=== PATIENT | female | born 1975 | race Caucasian/White ===

== ENCOUNTER 2016-06-07 19:56 | Emergency (ER) | payer OTHER ==
[2016-06-07 20:07] VITALS: TEMP 97.5; O2SAT 100
[2016-06-07 20:22] VITALS: BMI 20.1
[2016-06-07] MEDS ORDERED: Alum-Mag Hydrox-Simethicone Susp (30 mL) PO STA (20:30)
[2016-06-07] MEDS ORDERED: Lidocaine 2% Viscous 100 ml PO STA (20:30)
[2016-06-07] MEDS ORDERED: Atrop/Hyosc/Scopal/PB Elixir (120 ml) PO STA (20:30)
--- NOTE | 2016-06-07 20:52 | ED PDOC ---
Arrival/HPI <Phong iHlario - Last Filed: 06/07/16 23:24> - General Historian: Patient <Renetta Reid PA-C - Last Filed: 06/08/16 01:54> - General Chief Complaint: ENT Problem Time Seen by Provider: 06/07/16 20:10 - History of Present Illness Narrative History of Present Illness (Text): 06/07/16 20:49 Patient states that after eating rice for dinner oz started having a sensation that her "burp is stuck" in the lower sternal chest, patient states that she immediately tried to drink water but felt that it was not going down appropriately, then her started performing the Heimlich maneuver and she vomited out the water that she drank earlier. Patient states that she does not feel like food is stuck in her throat, neck, esophagus, or chest. Otherwise : (-) further episodes of vomiting, (-) chest pain, (-) shortness of breath, (- ) dyspnea, (-) abdominal pain, (-) back pain, (-) diarrhea, (-) fever. Patient reports having similar episodes in the past, states that sometimes they resolve on their own, and once she came to the emergency room to be evaluated, during that visit she was given medicine and felt better and was sent home. PMD Matthew (Renetta Reid PA-C) Past Medical History - Provider Review Nursing Documentation Reviewed: Yes - Infectious Disease Hx of Infectious Diseases: None - Tetanus Immunization Tetanus Immunization: Up to Date - Cardiac Hx Cardiac Disorders: No - Pulmonary Hx Asthma: Yes - Neurological Hx Neurological Disorder: No - HEENT Hx HEENT Disorder: No - Renal Hx Renal Disorder: No - Endocrine/Metabolic Hx Hypothyroidism: Yes - Hematological/Oncological Hx Blood Disorders: No - Integumentary Hx Dermatological Disorder: No - Musculoskeletal/Rheumatological Hx Musculoskeletal Disorders: No - Gastrointestinal Hx Gastrointestinal Disorders: No - Genitourinary/Gynecological Hx Genitourinary Disorders: No - Psychiatric Hx Psychophysiologic Disorder: No Hx Substance Use: No - Surgical History Hx Appendectomy: Yes - Anesthesia Hx Anesthesia: No Hx Anesthesia Reactions: No Hx Malignant Hyperthermia: No <Renetta Reid PA-C - Last Filed: 06/08/16 01:54> Family/Social History - Physician Review Nursing Documentation Reviewed: Yes Family/Social History: No Known Family HX Smoking Status: Never Smoked Hx Alcohol Use: No Hx Substance Use: No <Renetta Reid PA-C - Last Filed: 06/08/16 01:54> Allergies/Home Meds <Phong Hilario - Last Filed: 06/07/16 23:24> <Renetta Reid PA-C - Last Filed: 06/08/16 01:54> Allergies/Adverse Reactions: Allergies capsaicin [From Allevess Patch] Allergy (Verified 06/07/16 20:07) RASH menthol [From Allevess Patch] Allergy (Verified 06/07/16 20:07) RASH Home Medications: Home Meds Medication Instructions Recorded Confirmed Levothyroxine [Synthroid] 05/09/15 05/09/15 Review of Systems - Review of Systems Constitutional: Normal. absent: Fatigue, Weight Change Respiratory: Normal. absent: SOB, Cough Cardiovascular: Normal. absent: Chest Pain, Palpitations Gastrointestinal: Normal. absent: Abdominal Pain, Stool Changes Musculoskeletal: Normal. absent: Arthralgias, Back Pain Skin: Normal. absent: Rash, Skin Lesions <Renetta Reid PA-C - Last Filed: 06/08/16 01:54> Physical Exam <Phong Hilario - Last Filed: 06/07/16 23:24> <Renetta Reid PA-C - Last Filed: 06/08/16 01:54> - Physical Exam Narrative Physical Exam (Text): 06/07/16 20:53 GENERAL APPEARANCE: Patient is awake, alert, oriented x 3, in moderate distress. Patient speaking in full sentences, no drooling. SKIN: Warm, dry; (-) cyanosis. EYES: (-) conjunctival pallor, (-) scleral icterus. ENMT: Mucous membranes moist. NECK: (-) tenderness, (-) stiffness, (-) lymphadenopathy. CHEST AND RESPIRATORY: (-) rales, (-) rhonchi, (-) wheezes; breath sounds equal bilaterally. HEART AND CARDIOVASCULAR: (-) irregularity; (-) murmur, (-) gallop. ABDOMEN AND GI: (-) distention. Bowel sounds active; (-) tenderness, (-) guarding, (-) rebound, (-) palpable masses, (-) CVA tenderness. EXTREMITIES: (-) deformity, (-) edema, (+) distal pulses. NEURO AND PSYCH: Mental status as above; (-) focal findings. (Renetta Reid PA-C) Vital Signs Temp Pulse Resp BP Pulse Ox 06/07/16 23:10 85 18 112/81 100 06/07/16 20:01 97.5 F L 108 H 20 108/80 100 Medical Decision Making <Phong Hilario - Last Filed: 06/07/16 23:24> - Lab Interpretations I have reviewed the lab results: Yes Interpretation: All labs normal <Renetta Reid PA-C - Last Filed: 06/08/16 01:54> ED Course and Treatment: 06/07/16 20:57 41 yo F presents with sensation of "burp being stuck" to the lower sternum. CXR ordered. Patient medicated with GI cocktail PO, will reevaluate. 06/07/16 22:49 On re-evaluation, patient reports no improvement of her symptoms, she is dry heaving at this time, still states that she feels like her "burp is stuck," but denies any chest pain, SOB or FB sensation to the chest, esophagus or neck. EKG , CXR, labs ordered, given zofran IV, pepcid IV and offered glucagon, however the patient refused the glucagon. Labs reviewed, are otherwise normal. K 3.1, given KCL PO. CXR: NAD, as read by ROMAIN. EKG: NSR at 84 bpm, (-) acute ST changes, as read by PA. On reevaluation, patient feels much improved, denies any nausea, vomiting, chest pain, difficulty breathing. States that she no longer feels that her "burp " is stuck, states that she burped several times and felt so much better, denies any abdominal pain as well. On exam patient is calm, and in no acute painful or respiratory distress, speaking in full sentences, no drooling. VS: P 85 BP 112/81 100%RA Based on history, exam and diagnostic results plan will be for patient follow- up with PMD and GI referral provided. Prescription provided. Patient states she fully agrees with and understands discharge instructions. States that she agrees with the plan and disposition. Verbalized and repeated discharge instructions and plan. I have given the patient opportunity to ask any additional questions. Follow up with primary care physician and GI referral in 1-2 days without fail. Advised to take medication as prescribed. Return to the emergency room at any time for any new or worsening symptoms. (Franklin RICKS,Renetta Kumar) - Lab Interpretations Lab Results: 06/07/16 21:01 06/07/16 21:01 Lab Results 06/07/16 21:01: WBC 10.2, RBC 4.70, Hgb 12.1, Hct 36.6, MCV 77.9 L, MCH 25.7, MCHC 33.1, RDW 14.4, Plt Count 274, MPV 10.1, Gran % 51.8, Lymph % (Auto) 31.5, [place] % (Auto) 6.2 H, Eos % (Auto) 9.6 H, Baso % (Auto) 0.9, Gran # 5.27, Lymph # 3.2, [place] # 0.6, Eos # 1.0 H, Baso # 0.09, Sodium 140, Potassium 3.2 L, Chloride 104, Carbon Dioxide 22, Anion Gap 17, BUN 13, Creatinine 0.7, Est GFR ( Amer) > 60, Est GFR (Non-Af Amer) > 60, Random Glucose 105, Calcium 9.8 , Total Bilirubin 0.6, AST 25, ALT 22, Alkaline Phosphatase 58, Total Protein 7.7, Albumin 4.3, Globulin 3.4, Albumin/Globulin Ratio 1.3, Lipase 96 - RAD Interpretation Radiology Orders: 06/07/16 20:31 CHEST TWO VIEWS (PA/LAT) [RAD] Stat - Medication Orders Current Medication Orders: Discontinued Medications Al Hydrox/Mg Hydrox/Simethicone (Maalox Plus 30 Ml) 30 ml PO STAT STA Stop: 06/07/16 20:31 Last Admin: 06/07/16 21:16 Dose: 30 ML Belladonna/Phenobarbital ( Elixir) 5 ml PO STAT STA Stop: 06/07/16 20:31 Last Admin: 06/07/16 21:15 Dose: 5 ML Famotidine (Pepcid) 20 mg IVP STAT STA Stop: 06/07/16 21:06 Last Admin: 06/07/16 21:19 Dose: 20 MG IVP Administration Document 06/07/16 21:19 SB (Rec: 06/07/16 21:20 SB [id number]) Charges for Administration # of IVP Administrations 1 Glucagon (Glucagen Diagnostic Kit) 1 mg IV STAT STA Stop: 06/07/16 21:06 Last Admin: 06/07/16 21:16 Dose: Lidocaine (Lidocaine 2% Viscous) 15 ml PO STAT STA Stop: 06/07/16 20:31 Last Admin: 06/07/16 21:15 Dose: 15 ML Ondansetron HCl (Zofran Odt) 4 mg PO STAT STA Stop: 06/07/16 20:32 Last Admin: 06/07/16 20:38 Dose: Not Given Non-Admin Reason: Patient Refused Potassium Chloride (Potassium Chloride Oral Soln) 20 meq PO STAT STA Stop: 06/07/16 23:23 Last Admin: 06/07/16 23:31 Dose: 20 MEQ - PA / PUBLIC HEALTH NURSE / Resident Statement DUNCAN has reviewed & agrees with the documentation as recorded. <Phong Hilario - Last Filed: 06/07/16 23:24> - PA / PUBLIC HEALTH NURSE / Resident Statement DUNCAN has reviewed & agrees with the documentation as recorded. <Renetta Reid PA-C - Last Filed: 06/08/16 01:54> Disposition/Present on Arrival <Phong Hilario - Last Filed: 06/07/16 23:24> - Present on Arrival Any Indicators Present on Arrival: No History of DVT/PE: No History of Uncontrolled Diabetes: No Urinary Catheter: No History of Decub. Ulcer: No History Surgical Site Infection Following: None - Disposition Have Diagnosis and Disposition been Completed?: Yes Disposition Time: 23:13 Patient Plan: Discharge <Renetta Reid PA-C - Last Filed: 06/08/16 01:54> - Disposition Diagnosis: GERD (gastroesophageal reflux disease) Disposition: HOME/ ROUTINE Condition: GOOD Discharge Instructions (ExitCare): Gastroesophageal Reflux Disease (ED) Print Language: PORTUGUESE Additional Instructions: Thank you for letting us take care of you today. You were treated for GERD. The emergency medical care you received today was directed at your acute symptoms. If you were prescribed any medication, please fill it and take as directed. It may take several days for your symptoms to resolve. Return to the Emergency Department if your symptoms worsen, do not improve, or if you have any other problems. Please contact your doctor in 2 days for re-evaluation and follow up / or call one of the physicians/clinics you have been referred to that are listed on the Patient Visit Information form that is included in your discharge packet. Bring any paperwork you were given at discharge with you along with any medications you are taking to your follow up visit. Our treatment cannot replace ongoing medical care by a primary care provider (PCP) outside of the emergency department. Thank you for allowing the [facility] team to be part of your care today. Prescriptions: Famotidine [Pepcid] 40 mg PO DAILY #20 tablet Referrals: Stephanie Castro APN-C [Primary Care Provider] - Follow up with primary Sugar SOLITARIO,MD Rajendra [Medical Doctor] - Follow up with primary Forms: WORK NOTE
[2016-06-07] MEDS ORDERED: Glucagon Recombinant 1 mg Inj IV STA (21:05)
[2016-06-07 21:11] LABS: ADD MANUAL DIFF? NO
[2016-06-07 21:26] LABS: ALB/GLOB RATIO 1.3 (1.1-1.8); ALKALINE PHOSPHATASE 58 U/L (38-133); ALT/SGPT 22 U/L (7-56); AST/SGOT 25 U/L (15-39); BILIRUBIN,TOTAL 0.6 mg/dL (0.2-1.3); BLOOD UREA NITROGEN 13 mg/dL (7-21); CALCIUM 9.8 mg/dL (8.4-10.5); CARBON DIOXIDE 22 mmol/L (21-33); CHLORIDE 104 mmol/L (98-107); GFR AFRICAN-AMERICAN > 60; GLUCOSE,RANDOM 105 mg/dL (70-110); LIPASE 96 U/L (23-300); POTASSIUM 3.2 mmol/L (3.6-5.0); SODIUM 140 mmol/L (132-148); TOTAL PROTEIN 7.7 g/dL (5.8-8.3)
[2016-06-07 21:27] LABS: BASO # 0.09 K/mm3 (0.0-2.0); BASO % 0.9 % (0.0-3.0); EOS % 9.6 % (1.5-5.0); GRAN # 5.27 (1.4-6.5); GRAN % 51.8 % (50.0-68.0); HEMATOCRIT 36.6 % (36.0-48.0); LYMPH # 3.2 (1.2-3.4); LYMPH % 31.5 % (22.0-35.0); MEAN CELL VOLUME 77.9 fL (80.0-105.0); MEAN CORPUSCULAR HEMOGLOBIN 25.7 pg (25.0-35.0); MEAN CORPUSCULAR HGB CONC 33.1 g/dl (31.0-37.0); MEAN PLATELET VOLUME 10.1 fl (7.0-11.0); MONO # 0.6 (0.1-0.6); MONO % 6.2 % (1.0-6.0); PLATELET COUNT 274 10^3/uL (120.0-450.0); RED CELL DISTRIBUTION WIDTH 14.4 % (11.5-14.5); WHITE BLOOD COUNT 10.2 10^3/ul (4.5-11.0)
[2016-06-07] MEDS ORDERED: Potassium Chloride 20 mEq/15 ml LIQ UD PO STA (23:22)
[2016-06-07 23:32] VITALS: BP 112/81; PULSE 85; RESP 18
--- NOTE | 2016-06-08 07:17 | RAD ---
HISTORY: pain COMPARISON: Comparison chest 07/06/2015 TECHNIQUE: Chest PA and lateral FINDINGS: LUNGS: No active pulmonary disease. PLEURA: No significant pleural effusion identified. No pneumothorax apparent. CARDIOVASCULAR: Normal. OSSEOUS STRUCTURES: No significant abnormalities. VISUALIZED UPPER ABDOMEN: Normal. OTHER FINDINGS: None. IMPRESSION: No active disease.
--- NOTE | 2016-06-08 20:06 | CARD ---
APPROVED REPORT EKG Measurement Heart [id number] [id number] <Conclusion> Normal sinus rhythm Normal ECG
== END 2016-06-07 23:30 | disposition home or self-care (01) ==
LOC: ED 19:56
DX: K21.9 Gastro-esophageal reflux disease without esophagitis (principal); E03.9 Hypothyroidism, unspecified

== ENCOUNTER 2016-09-12 15:27 | Observation (INO) | payer OTHER ==
[2016-09-12 15:51] VITALS: BMI 21.2
[2016-09-12 15:58] VITALS: RESP 18; TEMP 98.3
--- NOTE | 2016-09-12 16:01 | ED PDOC ---
Arrival/HPI - History of Present Illness Time/Duration: Prior to Arrival Symptom Onset: Sudden Symptom Course: Unchanged Context: Home - General Chief Complaint: Chest Pain Time Seen by Provider: 09/12/16 15:30 - History of Present Illness Narrative History of Present Illness (Text): 09/12/16 15:56 41 yo female with PMH of hypothyroidism presents to emergency department with chest pain. She states that last night she started having pain under her left breast. She states she took mylanta, green tea and went to bed. She states that when she woke up she continued to have pain. She states the pain has been constantly. She state the pain is worse when she lays on her left side or when she takes deep breaths. She state that she has chest pain associated with gas and acid reflex in the past but it is usually resolves with burping and passing gas. She denies fever, chills, abd pain, n/v. PMD: (Beth Alvarez) Past Medical History - Provider Review Nursing Documentation Reviewed: Yes - Infectious Disease Hx of Infectious Diseases: None - Tetanus Immunization Tetanus Immunization: Up to Date - Cardiac Hx Cardiac Disorders: No - Pulmonary Hx Asthma: Yes - Neurological Hx Neurological Disorder: No - HEENT Hx HEENT Disorder: No - Renal Hx Renal Disorder: No - Endocrine/Metabolic Hx Hypothyroidism: Yes - Hematological/Oncological Hx Blood Disorders: No - Integumentary Hx Dermatological Disorder: No - Musculoskeletal/Rheumatological Hx Musculoskeletal Disorders: No - Gastrointestinal Hx Gastrointestinal Disorders: No - Genitourinary/Gynecological Hx Genitourinary Disorders: No - Psychiatric Hx Psychophysiologic Disorder: No Hx Substance Use: No - Surgical History Hx Appendectomy: Yes - Anesthesia Hx Anesthesia: No Hx Anesthesia Reactions: No Hx Malignant Hyperthermia: No Family/Social History - Physician Review Nursing Documentation Reviewed: Yes Family/Social History: No Known Family HX Smoking Status: Never Smoked Hx Alcohol Use: No Hx Substance Use: No Allergies/Home Meds Allergies/Adverse Reactions: Allergies capsaicin [From Allevess Patch] Allergy (Verified 06/07/16 20:07) RASH menthol [From Allevess Patch] Allergy (Verified 06/07/16 20:07) RASH Home Medications: Home Meds Medication Instructions Recorded Confirmed Levothyroxine [Synthroid] 05/09/15 05/09/15 Review of Systems - Review of Systems Constitutional: Normal. absent: Fevers Eyes: Normal ENT: Normal. absent: Sore Throat, Rhinorrhea, Sinus Congestion Respiratory: Normal. absent: Cough, Wheezing Cardiovascular: Chest Pain. absent: Palpitations, Edema, Calf Pain, Syncope Gastrointestinal: Normal. absent: Abdominal Pain, Constipation, Diarrhea, Nausea, Vomiting Genitourinary Female: Normal. absent: Dysuria, Frequency, Hematuria Musculoskeletal: Normal. absent: Arthralgias, Myalgias Skin: Normal. absent: Rash, Pruritis Neurological: Normal. absent: Headache, Dizziness Endocrine: Normal. absent: Diaphoresis Hemo/Lymphatic: Normal Psychiatric: Normal Physical Exam - Systems Exam Head: Present: Atraumatic, Normocephalic Pupils: Present: PERRL. No: Non-Reactive, Pinpoint Extroacular Muscles: Present: EOMI Conjunctiva: Present: Normal Mouth: Present: Moist Mucous Membranes Neck: Present: Normal Range of Motion Respiratory/Chest: Present: Clear to Auscultation, Good Air Exchange, Tender to Palpation. No: Respiratory Distress, Accessory Muscle Use, Wheezes, Rales, Rhonchi, Tachypneic Cardiovascular: Present: Regular Rate and Rhythm, Normal S1, S2. No: Murmurs, Bradycardic Abdomen: Present: Normal Bowel Sounds. No: Tenderness, Distention, Peritoneal Signs Back: Present: Normal Inspection Upper Extremity: Present: Normal Inspection. No: Cyanosis, Edema Lower Extremity: Present: Normal Inspection, NORMAL PULSES. No: Edema, CALF TENDERNESS, Tenderness, Swelling Neurological: Present: GCS=15, CN II-XII Intact, Speech Normal Skin: Present: Warm, Dry, Normal Color. No: Rashes, Diaphoretic, Pale Psychiatric: Present: Alert, Oriented x 3, Normal Insight, Normal Concentration Vital Signs Temp Pulse Resp BP Pulse Ox 09/12/16 20:25 94 H 18 110/68 98 09/12/16 18:34 94 H 18 110/42 L 98 09/12/16 15:27 98.3 F 92 H 18 127/85 100 Medical Decision Making - EKG Interpretation Interpreted by ED Physician: Yes Type: 12 lead EKG ED Course and Treatment: Patient seen and examined with resident. Came up with treatment and disposition plan with resident. pt's HEART score low. 2 sets of cardiac enzymes and an EKG ordered We long discussion with patient that our initial evaluation has not shown evidence of a heart attack. Patient verbalized understanding that even if these tests are normal, symptoms may still be a warning sign of a future heart attack and it is very important for patient to arrange outpatient cardiology follow up Patient was agreeable to observation in the emergency room, and understood that this will prolong the length of stay (Joe Oconnor) 09/12/16 16:04 Impression: 41 yo female with PMH of hypothyriodism, asthma presents to emergency department with chest pain. Differential Diagnosis included but are not limited to: - r/o acs Plan: - cbc, cmp - PT, PTT - cardiac iso - d-dimer - cxr - ED observes - protonix - Reassess and disposition Progress Notes: - EKG: Rate 91, rhythm: NSR, no ST changes 09/12/16 17:23 - Troponin was negative x1, will order repeat trop. D- dimer was elevated, will order CTA. Discussed results with patient, she is agreeable to have CTA. - CXR showed no active disease 09/12/16 18:59 - CTA FINDINGS: PULMONARY ARTERIES: Note that the examination is suboptimal with nearly equal contrast opacification of both the pulmonary arteries and aorta resultant salt and pepper type artifact. The visualized portions of the pulmonary trunk, right and left main and lobar branches and segmental branches are well opacified with no definitive evidence to suggest acute central pulmonary embolus. . The subsegmental branches are not well delineated. . Pulmonary trunk measures approximately 2.76 cm. AORTA: The ascending thoracic aorta measures approximately 2.6 cm and descending thoracic aorta measures approximately 2.0 cm. LUNGS: Lungs demonstrate no infiltrate effusion or basilar pneumothorax. No evidence of parenchymal mass. There appears to be some subpleural scarring in the right posterior sulcus abutting the pleural surface. PLEURAL SPACES: Unremarkable. No effusion or pneuomothorax. HEART: Unremarkable. No cardiomegaly. No significant pericardial effusion. LYMPH NODES: No lymphadenopathy. BONES, CHEST WALL: Unremarkable. No fracture or destructive lesion OTHER FINDINGS: There is a elliptical shaped approximately 3.3 x 2.0 cm low-attenuation masslike density in the region of the right adrenal gland which could represent adrenal adenoma however the possibility of an exophytic slightly hyperdense renal cyst not excluded. Recommend followup [place] ultrasound. IMPRESSION: No definitive radiographic evidence of acute central pulmonary embolus. There is a elliptical shaped approximately 3.3 x 2.0 cm low-attenuation masslike density in the region of the right adrenal gland which could represent adrenal adenoma however the possibility of an exophytic slightly hyperdense renal cyst not excluded. Recommend followup [place] ultrasound 09/12/16 19:31 - Results of CTA were discussed with patient and her . She was instructed to see PMD to follow up the right adrenal mass. All questions were answered. 09/12/16 20:17 - second trops are negative. Patient states pain has improved and would like to go home. Patient will follow up with PMD in 1-2 days. Discharge plan was discussed with patient, she is in agreement. All questions answered. (Beth Alvarez) - RAD Interpretation Radiology Orders: 09/12/16 15:52 CHEST PORTABLE [RAD] Stat - EKG Interpretation EKG Interpretation (Text): 09/12/16 16:09 EKG: Ordered, reviewed, and independently interpreted the EKG. Rate : 91 BPM Rhythm : NSR Interpretation : No ST-segment elevations or depressions Comparison : No change from previous EKG. (Beth Alvarez) - Medication Orders Current Medication Orders: Discontinued Medications Ketorolac Tromethamine (Toradol) 30 mg IVP STAT STA Stop: 09/12/16 18:32 Last Admin: 09/12/16 18:39 Dose: 30 mg Pantoprazole Sodium (Protonix Inj) 40 mg IVP STAT STA Stop: 09/12/16 15:54 Last Admin: 09/12/16 16:13 Dose: 40 mg Disposition/Present on Arrival - Present on Arrival Any Indicators Present on Arrival: No History of DVT/PE: No History of Uncontrolled Diabetes: No Urinary Catheter: No History Surgical Site Infection Following: None - Disposition Have Diagnosis and Disposition been Completed?: Yes Disposition Time: 15:36 Patient Plan: Observation - Disposition Diagnosis: Chest pain Disposition: HOME/ ROUTINE Patient Problems: Current Active Problems Problem Status Onset Chest pain Acute Condition: FAIR
[2016-09-12 16:07] LABS: ADD MANUAL DIFF? NO
[2016-09-12 16:20] LABS: BASO # 0.06 K/mm3 (0.0-2.0); BASO % 0.6 % (0.0-3.0); EOS # 0.8 (0.0-0.7); EOS % 7.8 % (1.5-5.0); GRAN # 5.94 (1.4-6.5); HEMATOCRIT 35.8 % (36.0-48.0); LYMPH # 2.5 (1.2-3.4); LYMPH % 25.3 % (22.0-35.0); MEAN CORPUSCULAR HEMOGLOBIN 24.6 pg (25.0-35.0); MEAN CORPUSCULAR HGB CONC 32.4 g/dl (31.0-37.0); MEAN PLATELET VOLUME 10.2 fl (7.0-11.0); MONO # 0.7 (0.1-0.6); MONO % 7.3 % (1.0-6.0); PLATELET COUNT 228 10^3/uL (120.0-450.0); RED CELL DISTRIBUTION WIDTH 14.5 % (11.5-14.5); WHITE BLOOD COUNT 10.1 10^3/ul (4.5-11.0)
[2016-09-12 16:24] LABS: INR 1.04 (0.93-1.08); PARTIAL THROMBOPLASTIN TIME 25.5 Seconds (23.7-30.8)
[2016-09-12 16:28] LABS: ALB/GLOB RATIO 1.3 (1.1-1.8); ALKALINE PHOSPHATASE 68 U/L (38-133); ALT/SGPT 25 U/L (7-56); AST/SGOT 18 U/L (15-39); BILIRUBIN,TOTAL 0.8 mg/dL (0.2-1.3); BLOOD UREA NITROGEN 12 mg/dL (7-21); CALCIUM 9.8 mg/dL (8.4-10.5); CARBON DIOXIDE 27 mmol/L (21-33); CHLORIDE 105 mmol/L (98-107); GFR AFRICAN-AMERICAN > 60; GLUCOSE,RANDOM 88 mg/dL (70-110); POTASSIUM 3.8 mmol/L (3.6-5.0); SODIUM 140 mmol/L (132-148); TOTAL PROTEIN 7.1 g/dL (5.8-8.3)
--- NOTE | 2016-09-12 16:37 | CARD ---
APPROVED REPORT EKG Measurement Heart [id number] CT 116P78 [id number] <Conclusion> Normal sinus rhythm Normal ECG
[2016-09-12 16:39] LABS: TROPONIN I < 0.01 ng/mL
[2016-09-12 16:51] LABS: D DIMER 1.1 mg/L FEU (0-0.50)
[2016-09-12] MEDS ORDERED: Iohexol 350 MG/100 ML VIAL ONE (17:19)
[2016-09-12 18:34] VITALS: PULSE 94; O2SAT 98
--- NOTE | 2016-09-12 18:49 | CT ---
PROCEDURE: CT Chest with contrast (Pulmonary Angiogram) HISTORY: elevated D dimer COMPARISON: Correlation made with chest radiograph obtained earlier same day TECHNIQUE: Axial computed tomography images were obtained of the chest in the pulmonary arterial phase of enhancement. Coronal and sagittal reformatted images were created and reviewed. Intravenous contrast dose: 135.73 Radiation dose: Total exam DLP = mGy-cm. This CT exam was performed using one or more of the following dose reduction techniques: Automated exposure control, adjustment of the mA and/or kV according to patient size, and/or use of iterative reconstruction technique. FINDINGS: PULMONARY ARTERIES: Note that the examination is suboptimal with nearly equal contrast opacification of both the pulmonary arteries and aorta resultant salt and pepper type artifact. The visualized portions of the pulmonary trunk, right and left main and lobar branches and segmental branches are well opacified with no definitive evidence to suggest acute central pulmonary embolus. . The subsegmental branches are not well delineated. . Pulmonary trunk measures approximately 2.76 cm. AORTA: The ascending thoracic aorta measures approximately 2.6 cm and descending thoracic aorta measures approximately 2.0 cm. LUNGS: Lungs demonstrate no infiltrate effusion or basilar pneumothorax. No evidence of parenchymal mass. There appears to be some subpleural scarring in the right posterior sulcus abutting the pleural surface. PLEURAL SPACES: Unremarkable. No effusion or pneuomothorax. HEART: Unremarkable. No cardiomegaly. No significant pericardial effusion. LYMPH NODES: No lymphadenopathy. BONES, CHEST WALL: Unremarkable. No fracture or destructive lesion OTHER FINDINGS: There is a elliptical shaped approximately 3.3 x 2.0 cm low-attenuation masslike density in the region of the right adrenal gland which could represent adrenal adenoma however the possibility of an exophytic slightly hyperdense renal cyst not excluded. Recommend followup [place] ultrasound. IMPRESSION: No definitive radiographic evidence of acute central pulmonary embolus. There is a elliptical shaped approximately 3.3 x 2.0 cm low-attenuation masslike density in the region of the right adrenal gland which could represent adrenal adenoma however the possibility of an exophytic slightly hyperdense renal cyst not excluded. Recommend followup [place] ultrasound
[2016-09-12 20:02] LABS: TROPONIN I < 0.01 ng/mL
[2016-09-12 20:29] VITALS: BP 110/68
--- NOTE | 2016-09-13 08:19 | RAD ---
HISTORY: Chest pain COMPARISON: 06/07/2016. FINDINGS: LUNGS: The lungs are hyperinflated and there is peribronchial thickening with chronic changes in both lungs. No focal consolidation. PLEURA: No significant pleural effusion identified, no pneumothorax apparent. CARDIOVASCULAR: Normal. OSSEOUS STRUCTURES: No significant abnormalities. VISUALIZED UPPER ABDOMEN: Normal. OTHER FINDINGS: None. IMPRESSION: No active pulmonary disease. COPD.
== END 2016-09-12 20:29 | disposition home or self-care (01) ==
LOC: ED 15:27 → EROBSV 15:52
PROVIDERS: ADMIT Emergency Medicine; ATTEND Emergency Medicine
DX: R07.9 Chest pain, unspecified (principal)
CPT/HCPCS: 71010; 71275; 80053; 82550; 83615; 84484; 85025; 85378; 85610; 85730; 93005; 96374; 96375; 99285; C9113; G0378; J1885; Q9967

== ENCOUNTER 2017-02-19 19:45 | Emergency (ER) | payer MEDICAID ==
[2017-02-19 19:45] VITALS: BMI 21.2
[2017-02-19 19:59] VITALS: TEMP 97.9; O2SAT 100
[2017-02-19] MEDS ORDERED: Sodium Chloride 0.9% 1,000 ML IV STA (20:00)
[2017-02-19] MEDS ORDERED: DiphenhydrAMINE 50 mg/ml Inj IVP STA (20:01)
--- NOTE | 2017-02-19 20:03 | ED PDOC ---
Arrival/HPI <Phong Hilario - Last Filed: 02/19/17 21:04> - General Historian: Patient - History of Present Illness Symptom Onset: Sudden Symptom Course: Unchanged Activities at Onset: Rest Context: Home <Evan Chatman - Last Filed: 02/19/17 22:11> - General Chief Complaint: ENT Problem Time Seen by Provider: 02/19/17 19:55 - History of Present Illness Narrative History of Present Illness (Text): 02/19/17 20:01 A 42 year old female, whose past medical history includes GERD/hypothyroidism, allergic to nsaid, presents to the emergency department complaining of epigastric pain and throat itchiness after having a kiwi 30 mins ago. Patient reports pain on epigastric region, nausea and two episodes of vomiting, stated that she felt the itching on the throat initially which she was concern so she call the ambulance. Pt. has no chest pain or shortness of breath, no night sweat, no rash, no numbness or tingling, no palpitation, no rash, no other medical or psychological complaints. (Evan Chatman) Past Medical History - Provider Review Nursing Documentation Reviewed: Yes - Infectious Disease Hx of Infectious Diseases: None - Tetanus Immunization Tetanus Immunization: Up to Date - Cardiac Hx Cardiac Disorders: No - Pulmonary Hx Asthma: Yes - Neurological Hx Neurological Disorder: No - HEENT Hx HEENT Disorder: No - Renal Hx Renal Disorder: No - Endocrine/Metabolic Hx Hypothyroidism: Yes - Hematological/Oncological Hx Blood Disorders: No - Integumentary Hx Dermatological Disorder: No - Musculoskeletal/Rheumatological Hx Musculoskeletal Disorders: No - Gastrointestinal Hx Gastrointestinal Disorders: No - Genitourinary/Gynecological Hx Genitourinary Disorders: No - Psychiatric Hx Psychophysiologic Disorder: No Hx Substance Use: No - Surgical History Hx Appendectomy: Yes Hx Tonsillectomy: Yes - Anesthesia Hx Anesthesia: No Hx Anesthesia Reactions: No Hx Malignant Hyperthermia: No <Evan Chatman - Last Filed: 02/19/17 22:11> Family/Social History - Physician Review Nursing Documentation Reviewed: Yes Family/Social History: No Known Family HX Smoking Status: Never Smoked Hx Alcohol Use: No Hx Substance Use: No <Evan Chatman - Last Filed: 02/19/17 22:11> Allergies/Home Meds <Phong Hilario - Last Filed: 02/19/17 21:04> <Evan Chatman Q - Last Filed: 02/19/17 22:11> Allergies/Adverse Reactions: Allergies capsaicin [From Allevess Patch] Allergy (Verified 06/07/16 20:07) RASH menthol [From Allevess Patch] Allergy (Verified 06/07/16 20:07) RASH naproxen [From Aleve] Allergy (Verified 02/19/17 20:00) RASH Home Medications: Home Meds Medication Instructions Recorded Confirmed Levothyroxine [Synthroid] 75 mg PO DAILY 05/09/15 02/19/17 Review of Systems - Physician Review All systems were reviewed & negative as marked: Yes - Review of Systems Constitutional: absent: Fatigue, Fevers ENT: Other (throat itchiness). absent: Hearing Changes, Sore Throat, Rhinorrhea Gastrointestinal: Abdominal Pain (epigastric), Nausea, Vomiting Musculoskeletal: absent: Arthralgias, Back Pain Skin: absent: Rash, Pruritis Neurological: absent: Headache, Dizziness <Evan Chatman Q - Last Filed: 02/19/17 22:11> Physical Exam Vital Signs Reviewed: Yes Temperature: Afebrile Blood Pressure: Hypotensive Pulse: Regular Respiratory Rate: Normal Appearance: Positive for: Well-Appearing, Non-Toxic, Comfortable Pain Distress: Moderate Mental Status: Positive for: Alert and Oriented X 3 - Systems Exam Head: Present: Atraumatic, Normocephalic Pupils: Present: PERRL Extroacular Muscles: Present: EOMI Conjunctiva: Present: Normal Mouth: Present: Moist Mucous Membranes Neck: Present: Normal Range of Motion Respiratory/Chest: Present: Clear to Auscultation, Good Air Exchange. No: Respiratory Distress, Accessory Muscle Use Cardiovascular: Present: Regular Rate and Rhythm, Normal S1, S2. No: Murmurs Abdomen: Present: Tenderness (mild epigastric tenderness), Normal Bowel Sounds. No: Distention, Peritoneal Signs, Rebound, Guarding Back: Present: Normal Inspection Upper Extremity: Present: Normal Inspection. No: Cyanosis, Edema Lower Extremity: Present: Normal Inspection. No: Edema Neurological: Present: GCS=15, Speech Normal, Motor Func Grossly Intact, Gait Normal, Memory Normal Skin: Present: Warm, Dry, Normal Color. No: Rashes Psychiatric: Present: Alert, Oriented x 3, Normal Insight, Normal Concentration <Evan Chatman Q - Last Filed: 02/19/17 22:11> Vital Signs Temp Pulse Resp BP Pulse Ox 02/19/17 19:45 97.9 F 91 H 20 137/52 L 100 Medical Decision Making <Phong Hilario - Last Filed: 02/19/17 21:04> - EKG Interpretation Interpreted by ED Physician: Yes Type: 12 lead EKG <Evan Chatman - Last Filed: 02/19/17 22:11> ED Course and Treatment: 02/19/17 20:05 -labs -EKG -IVF/pepcid/zofran/benadryl -observe and reassess 02/19/17 20:40 -EKG: NSR @ 78 BPM, no ST elevation or depression, no T wave inversion. -Labs are non-significant -Pt. feels completely relief, no itching or discomfort, eating and drinking well , no abdominal pain, will discharge compa. -Discharge home with pepcid, zofran, benadryl as need, prednisone, stay hydrated , bed rest, avoid acidic food, follow up with your own pmd and GI withi n2 days , return to the ER for any new or worsening signs or symptoms. (Evan Chatman) - Lab Interpretations Lab Results: 02/19/17 19:55 02/19/17 19:55 Lab Results 02/19/17 19:55: Sodium 140, Potassium 4.1, Chloride 103, Carbon Dioxide 28, Anion Gap 12, BUN 12, Creatinine 0.7, Est GFR ( Amer) > 60, Est GFR (Non- Af Amer) > 60, Random Glucose 95, Calcium 9.9, Magnesium 2.0, Total Bilirubin 0.8, AST 26, ALT 37, Alkaline Phosphatase 71, Total Protein 7.8, Albumin 4.5, Globulin 3.3, Albumin/Globulin Ratio 1.4, Lipase 95 02/19/17 19:55: WBC 10.6, RBC 5.03, Hgb 13.3, Hct 40.2, MCV 79.9 L, MCH 26.4, MCHC 33.1, RDW 16.2 H, Plt Count 258, MPV 10.5, Gran % 46.8 L, Lymph % (Auto) 33.2, [place] % (Auto) 6.2 H, Eos % (Auto) 13.1 H, Baso % (Auto) 0.7, Gran # 4.99, Lymph # 3.5 H, [place] # 0.7 H, Eos # 1.4 H, Baso # 0.07 - RAD Interpretation Radiology Orders: 02/19/17 20:01 CHEST PORTABLE [RAD] Stat - EKG Interpretation EKG Interpretation (Text): 02/19/17 20:40 NSR @ 78 BPM, no ST elevation or depression, no T wave inversion. (Evan Chatman) - Medication Orders Current Medication Orders: Discontinued Medications Diphenhydramine HCl (Benadryl) 50 mg IVP STAT STA Stop: 02/19/17 20:02 Last Admin: 02/19/17 20:42 Dose: 50 mg IVP Administration Document 02/19/17 20:42 JOL (Rec: 02/19/17 20:42 JOL [id number]) Charges for Administration # of IVP Administrations 1 Famotidine (Pepcid) 20 mg IVP STAT STA Stop: 02/19/17 20:01 Last Admin: 02/19/17 20:42 Dose: 20 mg IVP Administration Document 02/19/17 20:42 JOL (Rec: 02/19/17 20:42 [id number] [id number]) Charges for Administration # of IVP Administrations 1 Sodium Chloride (Sodium Chloride 0.9%) 1,000 mls @ 999 mls/hr IV .Q1H1M STA Stop: 02/19/17 21:00 Last Admin: 02/19/17 20:42 Dose: 999 mls/hr eMAR Start Stop Document 02/19/17 20:42 JOL (Rec: 02/19/17 20:42 [id number] [id number]) Intravenous Solution Start Date 02/19/17 Start Time 20:42 End Date 02/19/17 End time 21:42 Total Infusion Time 60 Metoclopramide HCl (Reglan) 10 mg IVP STAT STA Stop: 02/19/17 20:01 Last Admin: 02/19/17 20:42 Dose: 10 mg IVP Administration Document 02/19/17 20:42 JOL (Rec: 02/19/17 20:42 JOL [id number]) Charges for Administration # of IVP Administrations 1 - PA / [employer] / Resident Statement MD/DO has reviewed & agrees with the documentation as recorded. <Phong Hilario - Last Filed: 02/19/17 21:04> - PA / [employer] / Resident Statement MD/DO has reviewed & agrees with the documentation as recorded. - Scribe Statement The provider has reviewed the documentation as recorded by the Scribe <Evan Chatman - Last Filed: 02/19/17 22:11> - Scribe Statement Suzy Aislinn All medical record entries made by the Scribe were at my direction and personally dictated by me. I have reviewed the chart and agree that the record accurately reflects my personal performance of the history, physical exam, medical decision making, and the department course for this patient. I have also personally directed, reviewed, and agree with the discharge instructions and disposition. (Evan Chatman) Disposition/Present on Arrival <Phong Hilario - Last Filed: 02/19/17 21:04> - Present on Arrival Any Indicators Present on Arrival: No History of DVT/PE: No History of Uncontrolled Diabetes: No Urinary Catheter: No History of Decub. Ulcer: No History Surgical Site Infection Following: None - Disposition Have Diagnosis and Disposition been Completed?: Yes Disposition Time: 22:09 Patient Plan: Discharge <Evan Chatman - Last Filed: 02/19/17 22:11> - Disposition Diagnosis: Gastritis, Throat irritation Disposition: HOME/ ROUTINE Condition: IMPROVED Additional Instructions: -Discharge home with pepcid, zofran, benadryl as need, prednisone, stay hydrated , bed rest, avoid acidic food, follow up with your own pmd and GI withi n2 days , return to the ER for any new or worsening signs or symptoms. Prescriptions: DiphenhydrAMINE [Benadryl] 50 mg PO QID #24 cap Famotidine [Pepcid] 20 mg PO BID #22 tab Ondansetron [Zofran Odt] 4 mg PO TID PRN #12 odt PRN Reason: Other predniSONE [Prednisone] 2 tab PO DAILY #10 tab Referrals: Zachariah Corado MD [Primary Care Provider] - [place] up [place] [facility] [place] [facility] [place] - Follow up with primary Fadia Joseph MD [Medical Doctor] - Follow up with primary Forms: WORK NOTE
[2017-02-19 20:43] LABS: BASO # 0.07 K/mm3 (0.0-2.0); BASO % 0.7 % (0.0-3.0); EOS # 1.4 (0.0-0.7); EOS % 13.1 % (1.5-5.0); GRAN # 4.99 (1.4-6.5); GRAN % 46.8 % (50.0-68.0); HEMATOCRIT 40.2 % (36.0-48.0); LYMPH # 3.5 (1.2-3.4); LYMPH % 33.2 % (22.0-35.0); MEAN CELL VOLUME 79.9 fl (80.0-105.0); MEAN CORPUSCULAR HEMOGLOBIN 26.4 pg (25.0-35.0); MEAN CORPUSCULAR HGB CONC 33.1 g/dl (31.0-37.0); MEAN PLATELET VOLUME 10.5 fl (7.0-11.0); MONO # 0.7 (0.1-0.6); MONO % 6.2 % (1.0-6.0); RED CELL DISTRIBUTION WIDTH 16.2 % (11.5-14.5); WHITE BLOOD COUNT 10.6 10^3/ul (4.5-11.0)
[2017-02-19 20:47] LABS: ALB/GLOB RATIO 1.4 (1.1-1.8); ALKALINE PHOSPHATASE 71 U/L (38-126); ALT/SGPT 37 U/L (7-56); AST/SGOT 26 U/L (14-36); BILIRUBIN,TOTAL 0.8 mg/dL (0.2-1.3); BLOOD UREA NITROGEN 12 mg/dL (7-21); CALCIUM 9.9 mg/dL (8.4-10.5); CARBON DIOXIDE 28 mmol/L (21-33); CHLORIDE 103 mmol/L (98-107); GFR AFRICAN-AMERICAN > 60; GLUCOSE,RANDOM 95 mg/dL (70-110); LIPASE 95 U/L (23-300); POTASSIUM 4.1 mmol/L (3.6-5.0); SODIUM 140 mmol/L (132-148); TOTAL PROTEIN 7.8 g/dL (5.8-8.3)
[2017-02-20 05:35] VITALS: RESP 18
[2017-02-20 05:36] VITALS: BP 130/65; PULSE 85
--- NOTE | 2017-02-20 16:49 | CARD ---
APPROVED REPORT EKG Measurement Heart [id number] <Conclusion> Normal sinus rhythm Normal ECG
== END 2017-02-19 22:25 | disposition home or self-care (01) ==
LOC: ED 19:45
DX: K29.70 Gastritis, unspecified, without bleeding (principal); R09.89 Other specified symptoms and signs involving the circulatory and respiratory systems
CPT/HCPCS: 80053; 83690; 83735; 85025; 93005; 96361; 96374; 96375; 99284; J1200; J2765; J7040

== ENCOUNTER 2018-03-28 10:08 | Outpatient (CLI) | payer MEDICAID | END 2018-03-28 10:09 | disposition home or self-care (01) | LOC: CARDIO 10:08 | DX: E78.00 Pure hypercholesterolemia, unspecified (principal); R00.2 Palpitations; R07.89 Other chest pain ==